=== PATIENT | female | born 1980 | race Caucasian/White ===

== ENCOUNTER 2016-09-19 00:41 | Inpatient (IN) | payer OTHER ==
[~2016-09-19] VITALS: Ht 160 cm; Wt 93.0 kg
[~2016-09-19 00:41] MED LIST: IRON PO; PREN1TAB69 PO
[2016-09-19] MEDS ORDERED: Lactated Ringer's 1,000 ML IV SCH ×2 (07:38→17:31)
[2016-09-19] MEDS ORDERED: Lactated Ringer's 1,000 ML IV PRN (07:38)
[2016-09-19] MEDS ORDERED: Methylergonovine 0.2 mg/mL Inj IM PRN ×2 (07:40→17:35)
[2016-09-19] MEDS ORDERED: Oxytocin 30 Units/500 mL LR 30 UNITS in IV Premix 1 EACH IV PRN ×2 (07:40→17:35)
[2016-09-19] MEDS ORDERED: Carboprost 250 mCg/mL Inj IM PRN ×2 (07:40→17:35)
[2016-09-19] MEDS ORDERED: Oxytocin 10 Unit/mL Inj IM PRN ×2 (07:40→17:35)
[2016-09-19] MEDS ORDERED: Sodium Chloride LOK Flush 10 mL Syringe IVFLUSH PRN (07:40)
[2016-09-19] MEDS ORDERED: Hemorrhage Kit, Post Partum XX ONE ×2 (07:40→17:35)
--- NOTE | 2016-09-19 08:02 | PCM.HPOB ---
Subjective Date of Service: Sep 19, 2016 Referring Provider: Admitting Physician: Amina Kenyon MD Primary Care Physician: Nopcp Attending Physician: Amina Kenyon MD Chief Complaint Induction of labor 40 weeks gestation History of Present History of Present Illness 36-year-old at 40 weeks and 3 days with STEPHENIE of 09/15/16 who presents for induction of labor. Her is complicated by late to care due to family and housing issues. She does have a history of LGA infants and her U/S on showed EFW of 91%. She also had an acute appendicitis requiring appendectomy early in her . She failed her 1 hour DM screen and refused her TDAP vaccine. Labs pertinent for blood type A+, negative antibody screen, varicella and rubella immune, RPR nonreactive and hepatitis B surface antigen negative. Her GBS status is negative OB History: (6), Para (3), Term (3), Pre-term (0), ( 2), Living (3) Obstetrical Complications: Other Past Medical History Obstetrical History: 2009 at 42 weeks GA - healthy male 2009 40 weeks GA - healthy male 2012 40 weeks GA - Healthy femal 2 spontaneous abortions in 2011 and 2016 History of LGA babies Gynecologic History: Denies any Medical History: Acute appendicitis during Surgical History: Appendectomy Hx Tobacco Use: No Hx Alcohol Use: No Hx Substance Use: No Past Family History Living Arrangement: with Family Genetic Screening/Counseling Genetic Screening/Counseling: Unknown Baby father-had child w defect: No Review of Systems Constitutional: Y: Chills, Fever, Pain Eyes: Denies: Blurred Vision, Pain (f) ENT: Denies: Nose Pain, Throat Pain Cardiovascular: Reports: Edema, Denies: Chest Pain, Palpitations Respiratory: Denies: Cough, Pleuritic Chest Pain, Wheezing Gastrointestinal: Reports: Abdominal Pain, Nausea, Denies: Diarrhea, Vomiting Genitourinary: Denies: Dysuria, Incontinence Musculoskeletal: Reports: Back Pain, Denies: Redness, Swelling Skin/Breasts: Denies: Bruising, Rash Skin: Denies: Bruising Neurological: Denies: Numbness, Weakness Psychologic: Denies: Anxious, Depression Medications Home medications daily Iron Sulfate Allergy Uncoded Allergies: WALNUTS (Allergy, Mild, 6/14/10) Exam Vital Signs Blood pressure 123/73, heart rate of 93 Exam FHT: baseline 160, accelerations noted, no decels, moderate variability, Cat I tracing. Constitutional: Well-developed, Well-nourished, Obese, Well-groomed HEENT: Atraumatic, PERRLA, EOMI, Scleral Anicteric, Mucous Membr Moist/Prue Lungs: Clear to Auscultation, Normal Air Movement Heart: Regular Rate/Rhythm, Normal S1, Murmur (soft systolic) Abdomen: Gravid, Soft Extremities: Pulses Palpable x4, Warm, Edema (trace pedal edema) Skin: Other (warm, dry, intact, no rashes noted) Neurological/Psychiatric: Alert, Oriented X3, Cooperative, No Acute Distress Neuro: Grossly Neurologically Intact, Reflexes 2+, Normal DTRs, Normal Speech, Sensation Intact Additional Information SVE: 1-2cm, soft, -3 station Labs/Diagnostics Maternal Blood Type: A (positive) Antibody Screen: negative Group B Strep Results: Negative Previous with GBS: No Rubella: Immune OB Intrapartum Assessment/Plan Problems: (1) Elective induction of labor planned Status: Acute ICD Code: [id number] (2) 40 weeks gestation of Status: Acute ICD Code: Z3A.40 Pain Evaluation: Adequate Pain Control Intrapartum plan Plan will be to initiate induction due to postdates and history of LGA infants Continue routine intrapartum care Epidural anesthesia when appropriate and desired Start with Cytotec vaginally then reassess. Kamar Asencio DO Sep 19, 2016 08:02
[2016-09-19 08:36] LABS: Mean Corpuscular Volume 84.6 fL (81-100)
[2016-09-19] MEDS ORDERED: Misoprostol 25 mCg/0.25 Tablet VAGINAL SCH (09:30)
[2016-09-19] MEDS ORDERED: Benzocaine (Dermoplast) 20% 60 Gm Spray TOPICAL PRN (17:35)
[2016-09-19] MEDS ORDERED: LANOlin HPA 7 Gm Ointment TOPICAL PRN (17:35)
[2016-09-19] MEDS ORDERED: HYDROcodone-APAP 5-325 mg Tablet PO PRN (17:35)
[2016-09-19] MEDS ORDERED: Witch Hazel-Glycerin Pads TOPICAL PRN (17:35)
--- NOTE | 2016-09-19 17:43 | PCM.HPANE ---
Patient Data Surgeon Admitting Provider:Amina Kenyon MD Attending Provider:Amina Kenyon MD Primary Care Physician:Johnny Other Provider:Vishnu Valencia Anesthesia Reason for Visit Induction INDUCTION Ht/WT & BMI Body Mass Index Allergies Uncoded Allergies: WALNUTS (Allergy, Mild, 07/25/09) Past Anesthesia History Anesthesia History: Denies:: Abnormal Airway, Difficult Intubation Diabetes History Hx Diabetes?: No MRSA MRSA: No Medications Hypertension Medication: No Home Meds Incl Beta Maryanne: No Reported Medications [iron tablet] No Conflict Check Po #1 07/25/09 Vit/Fe Fumarate/Fa-Expunged Drug, Do (-Expunged Drug, Do Not Renew!)1 Each Tablet1 Each PO 1-2XD #1 07/25/09 History History of ENT Problems?: No HEENT History: Denies:: Abnormal Airway Difficult Intubation Denture Type: None Teeth Condition: Within Normal Limits Hx of Heart Problems?: No Cardiovascular History: Denies:: AICD Abdominal Aortic Aneurism Atrial Fibrillation Cardiac Surgery Chest Pain Congestive Heart Failure Coronary Artery Disease Edema Heart Murmur Hypertension Irregular Heartbeat Pacemaker Peripheral Vascular Rheumatic Fever Thrombophlebitis Valvular Heart Disease Hx of Respiratory Problem?: No Respiratory History: Denies:: Asthma COPD Chest Surgery Cough Dyspnea Emphysema Hemoptysis Oxygen Administration Pneumonia Pulmonary Embolism Tuberculosis Use of C-PAP Machine Use of Inhalers / NEBS Hx Neurologic Problems?: No Neurological History: Denies:: Alzheimer's Disease CVA Dementia Dizziness Headaches Multiple Sclerosis Parkinson's Disease Peripheral Neuropathy Seizures TIA Hx of GI Problems?: No Gastrointestinal History: Denies:: Cirrhosis Diverticulitis Gall Bladder Disease Gastroesphageal Reflux Gastrointestinal Bleeding Heartburn Hepatitis Hiatal Hernia Liver Disease Rectal Bleeding Hx of Problems?: No HX of Peritoneal Dialysis: No Female Hx: Positive for:: Currently Skin History: Denies:: History Skin Disorders? Pressure Ulcers Hx Musculoskeletal Problems?: No Musculoskeletal History: Denies:: Back Injury Degenerative Joint Fibromyalgia Joint Replacement Musculoskeletal Trauma Myasthenia Gravis Osteoarthritis Rheumatoid Arthritis Systemic Lupus Hx of Psycho/Social Problems?: No Hx Surgeries?: No Hx Alcohol Use: NoHx Substance Use: No Smoking Status: Never Smoker Stop/Bang Treated for Sleep Apnea?: No Do You Have a CPAP Machine?: No SHANON Risk Assessment: Low Risk, <3 Yes Risk Assessment Category Category 1A: Patient has history of documented sleep apnea, and HAS NOT received any narcotic, sedative or anesthesia administration during this stay. Category 1B: Patient has history of documented sleep apnea, and HAS received any narcotic , sedative or anesthesia administration during this stay Category 2: Patient has SUSPECTED Obstructive Sleep Apnea, and HAS received any narcotic , sedative or anesthesia administration during this stay. Category 3: Patient has SUSPECTED Obstructive Sleep Apnea and HAS NOT received narcotic, sedative or anesthesia administration during this stay. Category 4: Outpatient in Procedural Areas with known sleep apnea or who screen positive for High Risk via the STOP/BANG questionnaire. Exam Exam General Appearance: Alert, Oriented X3, Cooperative, No Acute Distress HEENT/AIRWAY: MP 2 Lungs: Clear to Auscultation, Normal Air Movement Heart: Regular Rate/Rhythm, Normal S1, Murmur (soft systolic) Meds/Labs/Diagnostics Admission Meds Current Medications Lactated Ringer's (Lr) 1,000 ml @ 125 mls/hr Q8H IV Last administered on 16:59; Start 09/19/16 at 07:38; Stop 09/19/16 at 17:36; Status DC Misoprostol (Cytotec) 25 mcg Q4H VAGINAL Last administered on 09/19/16 09:39; Start 09/19/16 at 09:30 Labs Test 09/19/16 08:00 White Blood Count 7.8th/mm3 (3.8-10.1) Red Blood Count 3.57mil/mm3 (3.90-5.20) Hemoglobin 10.0g/dL (12.0-15.6) Hematocrit 30.2% (35.0-46.0) Mean Corpuscular Volume 84.6fL (81-100) Mean Corpuscular Hemoglobin 28.0pg (27.0-35.0) Mean Corpuscular Hemoglobin Concent 33.1% (32.0-37.0) Red Cell Distribution Width 14.4% (12.3-15.4) Platelet Count 130bil/L (150-400) Plan Impression Patient chart reviewed, patient interviewed and anesthestic plan with risks, benefits, and alternatives discussed, and informed consent obtained. ASA Physical Status: ASA1 Normal Healthy Anesthetic Plan: Epidural Bene/Risks/Altern/Consents: Yes HP Complete Prior to Induction: Yes Roberto Serrano MD Sep 19, 2016 17:43
--- NOTE | 2016-09-19 17:46 | PCM.ANEP1 ---
Post Anesthesia PACU Phase 1 Assessment Anesthetic Administered: Other (no epidural-progressed too fast; sterile prep and initial local and epidural needle insertion but not enough time for actual epidural medication. Baby delivered uneventfully shortly after aborting epidural. ) Level of Alertness: Awake, talking [employer] with Equal Strength: Yes Pain: No Nausea or Vomiting: No CV Function & Hydration Stable: Yes Airway Device: none Lungs: Clear to Auscultation, Normal Air Movement Dermatome Level: Full Sensation PACU Phase 2 Assessment Complications: No Follow up Care: No Patient Instructions Provided: N/A Roberto Serrano MD Sep 19, 2016 17:45
--- NOTE | 2016-09-19 22:53 | HP ---
[address] [address] HISTORY AND PHYSICAL PATIENT: KEITH DIEHL : 1980 MR#: [id number] ADMIT: 09/19/2016 JOB ID: [id number] HISTORY OF PRESENT ILLNESS: The patient is a 36-year-old, 6, para 3, being admitted to [facility] because of elective induction at 40 weeks and 3 days. The patient has had a history of large babies, the recent one more than 10 pounds. She prefers to be induced. Her care was relatively uncomplicated. Besides advanced maternal age and failed one hour glucose tolerance testing, she has not had any issues. At presentation she had irregular contractions that are spaced out, heart rate tracing is reactive, category 1, baseline 140 beats per minute. ALLERGIES: NKDA. SOCIAL HISTORY: Patient denies smoking, alcohol, or illicit recreational drug use. CURRENT MEDICATIONS: 1. vitamins. 2. Iron extended release 325 mg p.o. daily. FAMILY HISTORY: Noncontributory. PHYSICAL EXAMINATION: Vital signs: Temperature 36.7, blood pressure 121/78, respiratory rate 18, pulse 80. General Awake, alert, oriented x3, in no apparent distress. HEENT: PERRLA. Chest: Clear. Good respiratory effort. Cardiovascular: Regular rate and rhythm. Abdomen: Gravid, nontender, nondistended, fundal height measuring higher than expected for gestational age. Cervical and pelvic exam: The cervix is 2 cm dilated, 60% effaced, station -3, ballotable head, cephalic presentation. Extremities: No pitting edema. ASSESSMENT AND PLAN: This is a 36-year-old, 6, para 3, at 40 weeks and 3 days, history of large for gestational age, presents for elective induction. The risks and benefits of the induction of labor were discussed with the patient and informed consent was obtained. The patient verbalized understanding of all the risks involved. Cytotec is going to be placed because of high and unfavorable cervix, following Cytotec, the patient will be re-evaluated, possibility of cervical ripening balloon was discussed as well. Pitocin will be given as needed. Epidural will be provided as per patient's request. The labs were sent. IV fluids started with Lactated Ringer's at 125 mL/h.
--- NOTE | 2016-09-19 22:57 | OP ---
[address] [address] OPERATIVE REPORT PATIENT: KEITH DIEHL : 1980 MR#: [id number] ADMIT: 09/19/2016 JOB ID: [id number] DATE OF SURGERY: 09/19/2016 SURGEON: PREOPERATIVE DIAGNOSIS(ES): A 36-year-old, 6, para 3, at 40 weeks and 3 days for elective induction of labor. POSTOPERATIVE DIAGNOSIS(ES): A 36-year-old, 6, para 4, status post spontaneous vaginal delivery at term. DELIVERY SUMMARY: The patient is a 36-year-old, 6, para 4 now, who presented to Labor and Delivery floor at seven o'clock in the morning of September 19, 2016, for induction of labor. The informed consent was obtained. The risks and benefits of induction were discussed. The labs were reviewed. She was group B strep negative, rubella immune, varicella immune. Blood group and type O-positive. On exam, the cervix was unfavorable, 2 cm dilated, 60% effaced, station -3 to -4. One dose of Cytotec was placed vaginally at 8:30 a.m. Following Cytotec, patient developed regular contractions every 2-3 minutes that were becoming more strong and intense. There was no need to start Pitocin. She was re-evaluated at 5 p.m. and at that time the cervix was 5 cm dilated, 90% effaced, station -1. Artificial rupture of membranes was done. Clear amniotic fluid noted. heart rate tracing was always reactive, category 1, baseline 140 beats per minute. The patient requested an epidural but she progressed fairly well to full dilation at 17:45, started pushing at around the same time. She underwent spontaneous vaginal delivery at 5:54 p.m., delivered a female with weight 4217 g, scores 9 at one minute and 9 at five minutes. Delayed cord clamping was allowed for one minute. Placenta was delivered at 17:58, was found to be intact with three-vessel cord. Pitocin was started shortly after delivery of the . The patient has not had any perineal lacerations. With uterine massage the uterus became firm. Estimated blood loss was 300 mL. All instrument and sponge count was correct x2. The cord blood was sent.
[2016-09-20 07:10] LABS: Mean Corpuscular Hemoglobin 27.8 pg (27.0-35.0); Mean Corpuscular Volume 85.2 fL (81-100)
--- NOTE | 2016-09-20 07:14 | PCM.PNOBPP ---
Subjective Date of Service Sep 20, 2016 Post : Spontaneous Vaginal Delivery Visit History The patient is a 36-year-old, 6, para 4 now, who presented to Labor and Delivery floor at seven o'clock in the morning of September 19, 2016, for induction of labor. She underwent spontaneous vaginal delivery at 5:54 p.m 09/19 and delivered a female with weight 4217 g, scores 9 at one minute and 9 at five minutes. Subjective Doing well, no complaints this AM. well, pain well controlled, never had epidural. Lochia: Normal Pain Management: Good Pain Control Gastrointestinal: No N/V Postop Activity: Ambulating Independently Group B Strep Results: Negative Rubella: Immune Blood Type: A (positive) Labs Laboratory Tests 09/19/16 08:00: White Blood Count 7.8, Red Blood Count 3.57, Hemoglobin 10.0, Hematocrit 30.2, Mean Corpuscular Volume 84.6, Mean Corpuscular Hemoglobin 28.0, Mean Corpuscular Hemoglobin Concent 33.1, Red Cell Distribution Width 14.4, Platelet Count 130 Exam Vital Signs Vital Signs 108/65 bp 63 hr 36.0 c Vital Signs: VS reviewed, stable Exam Abdomen: Fundus firm, Abdomen soft, Abdomen appropriately tender Extremities: Normal pulses, No tenderness/swelling, No edema Lungs: Clear to Auscultation, Normal Air Movement Heart: Regular Rate/Rhythm, No Murmurs/Rubs/Gallops General: Alert, Oriented X3, Cooperative, No Acute Distress OB Post Assessment/Plan Problems: (1) Elective induction of labor planned Status: Resolved ICD Code: [id number] (2) 40 weeks gestation of Status: Resolved ICD Code: Z3A.40 Pain Evaluation: Adequate Pain Control Post plan: Continue routine post care, Other Plan: If doing well, likely discharge home this afternoon. Attending Statement I saw patient and examined her. I agree with above plan. Kamar Asencio DO Sep 20, 2016 06:51 Mariposa Avalos MD Sep 23, 2016 14:02
--- NOTE | 2016-09-20 07:24 | PCM.DIOB ---
Kamar Asencio DO 09/20/16 0724: Obstetrical Disch Instruction Date of Service: Sep 20, 2016 Dates of Hospitalization Date of Hospital Admission Sep 19, 2016 at 07:02 Providers Admitting Physician: Amina Kenyon MD Primary Care Physician: Johnny Attending Physician: Amina Kenyon MD Discharge Diagnosis Discharge Diagnosis AROM Problems: (1) Elective induction of labor planned Status: Resolved ICD Code: [id number] (2) 40 weeks gestation of Status: Resolved ICD Code: Z3A.40 Diet Discharge Diet: No restrictions Activity Discharge Activity-General: Pelvic Rest for 6 weeks, Be up and about, Balance rest and activity, No lifting >15 pounds for 2 weeks Dressing and Incisional Care Hygiene: May shower, NO bathtub, hot tub or whirlpool, Perineal care, Sitz bath , Dermoplast spray, Witch Arleen pads, Ice Additional Instructions Discharge Instructions Please take the iron and vitamin c together for your anemia. Please take the stool softener to help keep your bowels regular. You can use the Ibuprofen for pain control, but take it with food to avoid stomach irritation. Be sure to follow up in 6 weeks at [facility]. Pelvic rest for 6 weeks (nothing per vagina including intercourse, tampons) If you have a fever greater than 100.4, or any swelling, redness, and tenderness in your arms and legs, please call [facility]. If you have an increase in bleeding, call Women's Health. If you have a lot of bleeding suddenly, especially if you have symptoms of dizziness & weakness with it, get emergency help. If you start experiencing extreme depression, especially if you feel that you are a danger to yourself or your family, seek emergency help. You have been through a lot -- BE SURE TO TAKE CARE OF YOURSELF. Follow Up Plan Follow Up Plan [facility] Follow-up Provider (F9): Rohit Ortiz MD Follow-up appointment: Weeks (6) Call your provider for: Fever or Chills, Shortness of breath, Heavy vaginal bleeding, Red painful breasts Mariposa Avalos MD 09/23/16 1403: Obstetrical Disch Instruction Attending Statement I saw patient and examined her. I agree with above plan. Kamar Asencio DO Sep 20, 2016 07:24 Mariposa Avalos MD Sep 23, 2016 14:03
[2016-09-20] MEDS ORDERED: IBUP800T28 PO (07:26)
[2016-09-20] MEDS ORDERED: DOCU-41 PO (07:26)
[2016-09-20] MEDS ORDERED: FERR-74 PO (07:26)
[2016-09-20] MEDS ORDERED: Ascorbic Acid PO (07:26)
--- NOTE | 2016-09-20 07:55 | PCM.DC.OB ---
Obstetrical Discharge Summary Date of Service Sep 20, 2016 Date of hospital admission Sep 19, 2016 at 07:02 Date of Discharge: Sep 20, 2016 Providers Admitting Physician: Amina Kenyon MD Primary Care Physician: Nopbrigitte Attending Physician: Amina Kenyon MD Diagnosis at Time of Discharge AROM Problems: (1) Elective induction of labor planned Status: Resolved ICD Code: [id number] (2) 40 weeks gestation of Status: Resolved ICD Code: Z3A.40 Invasive procedures DELIVERY SUMMARY: The patient is a 36-year-old, 6, para 4 now, who presented to Labor and Delivery floor at seven o'clock in the morning of September 19, 2016, for induction of labor. The informed consent was obtained. The risks and benefits of induction were discussed. The labs were reviewed. She was group B strep negative, rubella immune, varicella immune. Blood group and type O-positive. On exam, the cervix was unfavorable, 2 cm dilated, 60% effaced, station -3 to -4. One dose of Cytotec was placed vaginally at 8:30 a.m. Following Cytotec, patient developed regular contractions every 2-3 minutes that were becoming more strong and intense. There was no need to start Pitocin. She was re-evaluated at 5 p.m. and at that time the cervix was 5 cm dilated, 90% effaced, station -1. Artificial rupture of membranes was done. Clear amniotic fluid noted. heart rate tracing was always reactive, category 1, baseline 140 beats per minute. The patient requested an epidural but she progressed fairly well to full dilation at 17:45, started pushing at around the same time. She underwent spontaneous vaginal delivery at 5:54 p.m., delivered a female with weight 4217 g, scores 9 at one minute and 9 at five minutes. Delayed cord clamping was allowed for one minute. Placenta was delivered at 17:58, was found to be intact with three-vessel cord. Pitocin was started shortly after delivery of the . The patient has not had any perineal lacerations. With uterine massage the uterus became firm. Estimated blood loss was 300 mL. All instrument and sponge count was correct x2. The cord blood was sent. Rohit Ortiz MD 09/19/16 8532 Brief History and Physical: 36-year-old at 40 weeks and 3 days with STEPHENIE of 09/15/16 who presents for induction of labor. Her is complicated by late to care due to family and housing issues. She does have a history of LGA infants and her U/S on showed EFW of 91%. She also had an acute appendicitis requiring appendectomy early in her . She failed her 1 hour DM screen and refused her TDAP vaccine. Labs pertinent for blood type A+, negative antibody screen, varicella and rubella immune, RPR nonreactive and hepatitis B surface antigen negative. Her GBS status is negative Exam Abdomen: Fundus firm, Abdomen soft, Abdomen appropriately tender Extremities: Normal pulses, No tenderness/swelling, No edema Lungs: Clear to Auscultation, Normal Air Movement Heart: Regular Rate/Rhythm, No Murmurs/Rubs/Gallops General: Alert, Oriented X3, Cooperative, No Acute Distress Hospital Course: 36 yo now who presented at 40.3 weeks GA for planned IOL. She was induced with vaginal cytotec and progressed appropriately. Membranes were ruptured artificially and patient very rapidly progressed to labor. An epidural was not placed in time. She had and delivered a healthy female with Apgars of 9 and 9. She recovered quickly the next day and was able to tolerate PO intake, had normal BMs, ambulated independently, and was well. She was discharge in good condition with follow up instructions. ([iron tablet]) PO (Reported) ([Ascorbic Acid]) 500 MG TABLET 500 MG PO BIDWM Prescribed by: JUNE GUTIERREZ DO Docusate Sodium (Colace) 100 Mg Capsule 100 MG PO BID Prescribed by: JNUE GUTIERREZ DO Ferrous Sulfate (Feosol) 325 Mg Tablet 325 MG PO BIDWM Prescribed by: JUNE GUTIERREZ DO Ibuprofen (Ibuprofen) 800 Mg Tablet 800 MG PO Q6H PRN PRN For Pain Prescribed by: JUNE GUTIERREZ DO Discontinued Medications Vit/Fe Fumarate/Fa-Expunged Drug, Do (-Expunged Drug, Do Not Renew!) 1 Each Tablet 1 EACH PO 1-2XD (Reported) Disposition Home Follow-up plan [facility] in 6 weeks Discharge Diet: No restrictions Discharge Activity-General: Pelvic Rest for 6 weeks, Try not to overdue, Be up and about, Balance rest and activity, No lifting >15 pounds for 2 weeks Attending Statement: I saw patient and examined her. I agree with above plan. copies to: Mariposa Avalos MD; Mariposa Avalos MD [facility] Hospital[facility] Sep 20, 2016 07:29 Mariposa Avalos MD Sep 23, 2016 14:12
[2016-09-20] MEDS ORDERED: Ascorbic Acid 500 mg Tablet PO SCH (08:00)
[2016-09-20 15:32] VITALS: BP 120/75; PULSE 70; RESP 16
== END 2016-09-20 15:53 | disposition home or self-care (01) | DRG 775 ==
LOC: FBC 07:02
PROVIDERS: ADMIT Obstetrics & Gynecology; ATTEND Legal Medicine
PROC: 10E0XZZ Delivery of Products of Conception, External Approach (ICD-10-PCS; principal; 2016-09-19)
PROC: 10907ZC Drainage of Amniotic Fluid, Therapeutic from Products of Conception, Via Natural or Artificial Opening (ICD-10-PCS; 2016-09-19)
PROC: 3E0P7GC Introduction of Other Therapeutic Substance into Female Reproductive, Via Natural or Artificial Opening (ICD-10-PCS; 2016-09-19)
DX: O48.0 Post-term pregnancy (principal); Z3A.40 40 weeks gestation of pregnancy; Z37.0 Single live birth